=== PATIENT | male | born 1945 | race Caucasian/White ===

== ENCOUNTER → 2021-05-24 | Outpatient (CLI) | payer MEDICARE ==
[~2021-05-24] MED LIST: CALAMINE LOTIO177 ML TOP; CLEOCIN HCL300 MG PO; DOXYCYCLINE HY100 M2 PO; KEFLEX CAP 500500 MG PO; KENALOG CREAM 015 GM TOP; LISINOPRIL-HCT1 EAC1 PO; MEDROL4 MG PO; NORVASC 5 MG TAB5 MG PO; PREDNISONE20 MG PO; VIBRAMYCIN100 MG PO
== END ==
LOC: KOH-I 10:37
DX: J96.21 Acute and chronic respiratory failure with hypoxia (principal)
CPT/HCPCS: 71046

== ENCOUNTER 2021-10-29 08:38 | Emergency (ER) | payer MEDICARE ==
[2021-10-29] MEDS ORDERED: HYDROCODON-ACE1 EAC4 PO (10:08)
[2021-10-29] MEDS ORDERED: BENZONATATE200 MG PO (10:12)
== END 2021-10-29 10:18 | disposition home or self-care (01) ==
LOC: ER1 08:38
DX: S22.32XA Fracture of one rib, left side, initial encounter for closed fracture (principal); I10 Essential (primary) hypertension; R05.9 Cough, unspecified; F17.200 Nicotine dependence, unspecified, uncomplicated; Z88.8 Allergy status to other drugs, medicaments and biological substances; Z79.899 Other long term (current) drug therapy; X58.XXXA Exposure to other specified factors, initial encounter
CPT/HCPCS: 71111; 99283

== ENCOUNTER 2021-12-07 15:00 | Inpatient (IN) | payer MEDICARE ==
[~2021-12-07] VITALS: Ht 167.6 cm; Wt 72.6 kg
[~2021-12-07 15:00] MED LIST changes: +BENZONATATE200 MG PO; +HYDROCODON-ACE1 EAC4 PO
[2021-12-07 15:49] LABS: HEMOGLOBIN 15.7 gm/dl (14.0-17.5); RED BLOOD COUNT 5.17 M/UL (4.20-5.50); WHITE BLOOD COUNT 8.3 K/UL (4.5-11.0)
[2021-12-07 16:15] LABS: BUN/CREATININE RATIO 34 (0-10)
[2021-12-08] MEDS ORDERED: PROVENTIL HFA6.7 GM INH (11:06)
[2021-12-08] MEDS ORDERED: ASPIRIN EC81 MG PO (11:09)
[2021-12-09 12:59] LABS: BUN/CREATININE RATIO 39 (0-10)
[2021-12-11 06:54] LABS: HEMOGLOBIN 17.2 gm/dl (14.0-17.5); RED BLOOD COUNT 5.93 M/UL (4.20-5.50); WHITE BLOOD COUNT 11.1 K/UL (4.5-11.0)
[2021-12-11 07:20] LABS: BUN/CREATININE RATIO 60 (0-10)
--- NOTE | 2021-12-11 15:57 | NUR ---
Fentanyl patch on left deltoid removed and discarded in black waste container. New patch placed this date at 1554 was placed on the right deltoid with date, time and initials written on patch and covered with transparent tegaderm. Giacomo Peace RN, witnessed the removal, discard and placement of new patch.
[2021-12-12 06:47] LABS: HEMOGLOBIN 18.7 gm/dl (14.0-17.5); RED BLOOD COUNT 6.02 M/UL (4.20-5.50); WHITE BLOOD COUNT 13.5 K/UL (4.5-11.0)
[2021-12-12 07:02] LABS: BUN/CREATININE RATIO 65 (0-10)
[2021-12-13 06:40] LABS: RED BLOOD COUNT 5.95 M/UL (4.20-5.50); WHITE BLOOD COUNT 12.3 K/UL (4.5-11.0)
[2021-12-13 07:10] LABS: BUN/CREATININE RATIO 76 (0-10)
--- NOTE | 2021-12-14 09:39 | NUR ---
0937- NOTIFIED DR SANCHZE OF PATIENT OXYGEN STAYING AT 85%. RESP. THERAPIST INCREASED AIR VO TO 100%. PT OXYXEN 91%. WILL CONITNUE TO MONITOR.
[2021-12-14 11:56] LABS: HEMOGLOBIN 18.3 gm/dl (14.0-17.5); RED BLOOD COUNT 5.91 M/UL (4.20-5.50); WHITE BLOOD COUNT 13.6 K/UL (4.5-11.0)
[2021-12-14 12:21] LABS: BUN/CREATININE RATIO 76 (0-10)
[2021-12-16 06:51] LABS: RED BLOOD COUNT 5.33 M/UL (4.20-5.50)
[2021-12-16 06:52] LABS: HEMOGLOBIN 15.4 gm/dl (14.0-17.5); WHITE BLOOD COUNT 8.2 K/UL (4.5-11.0)
[2021-12-16 14:05] LABS: BUN/CREATININE RATIO 52 (0-10)
[2021-12-17] MEDS ORDERED: STIMULANT LAXA1 EACH PO (10:53)
[2021-12-17] MEDS ORDERED: MEGACE 400400 MG/10 PO (10:53)
[2021-12-17] MEDS ORDERED: BROVANA15 MCG/2 M INH (10:53)
[2021-12-17] MEDS ORDERED: TOPROL XL25 MG PO (10:53)
[2021-12-17] MEDS ORDERED: PERCOCET 10-321 EACH PO (10:53)
[2021-12-17] MEDS ORDERED: PULMICORT0.5 MG/2 M INH (10:53)
[2021-12-17] MEDS ORDERED: IPRAT-ALBUT 0.5-3 ML INH (10:53)
[2021-12-17] MEDS ORDERED: THERAGRAN M TAB1 EA PO (10:53)
[2021-12-17] MEDS ORDERED: PROTONIX 40 MG40 M1 PO (10:53)
[2021-12-17] MEDS ORDERED: AMLODIPINE BESY10 MG PO (10:53)
[2021-12-17] MEDS ORDERED: CHRONULAC20 GM/30 M PO (10:53)
[2021-12-17] MEDS ORDERED: DURAGESIC 12 M1 EACH TD ×2 (10:53→11:10)
--- NOTE | 2021-12-17 12:30 | NUR ---
PT 85% ON ROOM AIR AT REST
== END 2021-12-17 13:37 | disposition home or self-care (01) | DRG 435 ==
LOC: ER1 15:00 → CDU 18:22 → MED SURG 4 18:25
PROVIDERS: Internal Medicine Infectious Disease; Physician Assistant; Student in an Organized Health Care Education/Training Program; ADMIT Internal Medicine
PROC: 0FB23ZX Excision of Left Lobe Liver, Percutaneous Approach, Diagnostic (ICD-10-PCS; principal; 2021-12-10)
DX: C78.7 Secondary malignant neoplasm of liver and intrahepatic bile duct (principal); J96.01 Acute respiratory failure with hypoxia; C79.51 Secondary malignant neoplasm of bone; Z66 Do not resuscitate; Z20.822 Contact with and (suspected) exposure to COVID-19; C34.90 Malignant neoplasm of unspecified part of unspecified bronchus or lung; J44.1 Chronic obstructive pulmonary disease with (acute) exacerbation; E87.1 Hypo-osmolality and hyponatremia; M84.58XA Pathological fracture in neoplastic disease, other specified site, initial encounter for fracture; G89.3 Neoplasm related pain (acute) (chronic); R74.01 Elevation of levels of liver transaminase levels; M54.50 Low back pain, unspecified; R63.4 Abnormal weight loss; Z96.1 Presence of intraocular lens; R59.1 Generalized enlarged lymph nodes; I10 Essential (primary) hypertension; E87.5 Hyperkalemia; W01.0XXA Fall on same level from slipping, tripping and stumbling without subsequent striking against object, initial encounter; R53.81 Other malaise; F17.210 Nicotine dependence, cigarettes, uncomplicated; K59.00 Constipation, unspecified; Z79.01 Long term (current) use of anticoagulants; Z79.82 Long term (current) use of aspirin; Z88.8 Allergy status to other drugs, medicaments and biological substances; Z98.42 Cataract extraction status, left eye; Z98.41 Cataract extraction status, right eye; Z80.9 Family history of malignant neoplasm, unspecified; Z51.5 Encounter for palliative care
CPT/HCPCS: 36415; 36600; 70553; 71045; 71250; 71275; 72131; 76942; 80048; 80053; 80076; 82550; 82803; 83735; 83880; 85025; 85610; 94640; 94760; 96374; 96375; 97116; 97161; 97530-GP-CQ; 99285; A9577; J1650; J2270; J2405; J2920; Q9967

== ENCOUNTER 2021-12-26 12:44 | Emergency (ER) | payer MEDICARE ==
[~2021-12-26 12:44] MED LIST changes: +AMLODIPINE BESY10 MG PO; +ASPIRIN EC81 MG PO; +BROVANA15 MCG/2 M INH; +CHRONULAC20 GM/30 M PO; +DURAGESIC 12 M1 EACH TD; +IPRAT-ALBUT 0.5-3 ML INH; +MEGACE 400400 MG/10 PO; +PERCOCET 10-321 EACH PO; +PROTONIX 40 MG40 M1 PO; +PROVENTIL HFA6.7 GM INH; +PULMICORT0.5 MG/2 M INH; +STIMULANT LAXA1 EACH PO; +THERAGRAN M TAB1 EA PO; +TOPROL XL25 MG PO
[2021-12-26 13:52] LABS: HEMOGLOBIN 14.4 gm/dl (14.0-17.5); RED BLOOD COUNT 4.72 M/UL (4.20-5.50); WHITE BLOOD COUNT 9.7 K/UL (4.5-11.0)
[2021-12-26 14:21] LABS: BUN/CREATININE RATIO 45 (0-10)
== END 2021-12-26 21:30 | disposition home or self-care (01) ==
LOC: ER1 12:44
PROVIDERS: Family Medicine
DX: C34.91 Malignant neoplasm of unspecified part of right bronchus or lung (principal); C78.7 Secondary malignant neoplasm of liver and intrahepatic bile duct; C79.51 Secondary malignant neoplasm of bone; R09.02 Hypoxemia; R79.89 Other specified abnormal findings of blood chemistry; N18.9 Chronic kidney disease, unspecified; Z87.891 Personal history of nicotine dependence
CPT/HCPCS: 36600; 71045; 80053; 82550; 82553; 82803; 83605; 83880; 84484; 85025; 87040; 94664; 99284